=== PATIENT | male | born 1985 | race Caucasian/White ===

== ENCOUNTER → 2019-03-15 10:06 | Outpatient (CLI) | payer OTHER, MEDICAID, SELFPAY ==
[2019-03-15 11:03] LABS: Hematocrit 44.7 % (41-53); Hemoglobin 15.6 g/dL (13.5-17.5); Mean Corpuscular HGB Conc 34.9 % (30-36); Mean Corpuscular Hemoglobin 28.9 PG (26-34); Mean Corpuscular Volume 82.9 fL (80-100); Platelet Count 249 X10^3/uL (150-400); Red Cell Distribution Width 13.5 % (11.6-14.8); White Blood Cell Count 6.8 X10^3/uL (4.5-11.0)
[2019-03-15 11:49] LABS: Alanine Aminotransferase 37 IU/L (<50); Albumin 4.6 g/dL (3.5-5.0); Albumin Globulin Ratio 1.5 (1.0-2.8); Alkaline Phosphatase 80 U/L (38-126); Aspartate Aminotransferase 29 IU/L (17-59); Bilirubin Total 0.6 mg/dL (0.2-1.3); Blood Urea Nitrogen 14 mg/dL (9-20); Calcium 9.6 mg/dL (8.4-10.2); Carbon Dioxide 29 mmol/L (22-32); Chloride 102 mmol/L (98-107); Cholesterol 266 mg/dL (140-199); Estimated Glomerular Filt Rate > 60.0 mL/min (>60); Globulin 3.1 g/dL (1.7-4.1); Glucose 98 mg/dL (70-100); HDL Cholesterol 40 mg/dL (40-60); HEMOLYSIS < 15 (0-50); LDL Cholesterol Calculated 153 mg/dL (<100); Potassium 4.5 mmol/L (3.4-5.1); Sodium 138 mmol/L (137-145); Total Protein 7.7 g/dL (6.3-8.2); Triglycerides 366 mg/dL (35-150)
[2019-03-15 12:20] LABS: TSH w/ Reflex to FT4 1.37 uIU/mL (0.47-4.68)
[2019-03-15 13:00] LABS: Urine Chlamydia NOT DETECTED; Urine N gonorrhoeae NOT DETECTED
[2019-03-17 18:18] LABS: RPR Screen Nonreactive (Nonreactive)
== END ==
PROVIDERS: PCP Nurse Practitioner Family; Visit Provider Nurse Practitioner Family
DX: Z00.00 Encounter for general adult medical examination without abnormal findings (principal); Z13.6 Encounter for screening for cardiovascular disorders; N48.9 Disorder of penis, unspecified; R00.2 Palpitations
CPT/HCPCS: 36415; 80053; 80061; 84443; 85027; 86592; 87491; 87591; 87661

== ENCOUNTER 2019-03-29 00:05 | Emergency (ER) | payer OTHER, MEDICAID, SELFPAY ==
[2019-03-29 00:05] VITALS: BP 157/86; PULSE 71; RESP 18; TEMP 36.7; O2SAT 98; BMI 31.8
--- NOTE | 2019-03-29 00:42 | ED.DENTAL ---
HPI - Dental/Oral General Chief complaint: Dental/Oral Stated complaint: top left tooth pain Time Seen by Provider: 03/29/19 00:28 Source: patient Mode of arrival: Ambulatory Limitations: no limitations History of Present Illness HPI Narrative: 33-year-old male here for evaluation of left upper tooth/jaw pain. Patient states that it started over the past couple days. He states he has known poor dentition and does understand he needs to see a dentist but has not done it. Has had issues like this in the past. Did not see a dentist after them. No fevers. No problems swallowing. Has tried aspirin for his symptoms prior to arrival Related Data Home Medications Medication Instructions Recorded Confirmed ibuprofen 200 mg tablet 400 mg PO Q4-6H PRN tab 03/01/19 03/01/19 Previous Rx's Medication Instructions Recorded penicillin V potassium 500 mg PO QID 7 Days #28 tab 03/29/19 Allergies Allergy/AdvReac Type Severity Reaction Status Date / Time No Known Drug Allergies Allergy Unverified 03/01/19 11:07 Review of Systems Constitutional Constitutional: Denies fever(s) ENT Comments: Left-sided ear pain, dental pain, left upper jaw pain Cardiovascular Cardiovascular: Denies chest pain and Denies dyspnea Respiratory Respiratory: Denies dyspnea Integumentary/Breasts Skin/Breast: Denies rash Hematologic/Lymphatic Hematologic/Lymphatic: Denies easy bleeding and Denies easy bruising Allergic/Immunologic Allergic/Immunologic: Denies urticaria Patient History Medical History ADHD (Chronic) BMI 32.0-32.9,adult (Acute) Chicken pox (Resolved) History of methamphetamine use (Acute 2016) Palpitations (Acute 09/2018) Penis disorder (Acute 2017) Family History (Updated 03/06/19 @ 20:46 by Mariana Pat) Brother Autism Social History Smoking Status: Former smoker Tobacco: How many years used: 16 Smokeless tobacco user: chewing tobacco (Quit 02/26/19) second hand exposure: No alcohol intake: never substance use type: does not use Smoking Status: Former smoker alcohol intake frequency: 0-2 drinks per day Substance Use Type: does not use Exam Initial Vital Signs Initial Vital Signs: Vital Signs Temperature 98.1 F 03/29/19 00:05 Pulse Rate 71 03/29/19 00:05 Respiratory Rate 18 03/29/19 00:05 Blood Pressure 157/86 H 03/29/19 00:05 Pulse Oximetry 98 03/29/19 00:05 Const General: cooperative, comfortable and well developed Orientation: alert and awake HENMT Head: normal to inspection and normocephalic Ears: TM's normal bilaterally Nose: external nose normal Mouth: moist mucous membranes Teeth and gingiva: caries and poor dentition Throat: posterior oropharynx normal Neck Lymphatic: No lymphadenopathy Resp Effort & Inspection: normal respiratory effort Skin Lesions: no lesions Rashes: no rashes Neuro General: alert and awake Cognition: normal cognition Speech: speech normal Extrem General: normal to inspection and capillary refill normal Course Orders Ordered: Discontinued Medications Penicillin V Potassium (Veetids) 500 mg PO NOW ONE Stop: 03/29/19 00:43 Last Admin: 03/29/19 00:51 Dose: 500 mg Documented by: LAVON Vital Signs Vital signs: Vital Signs - 8 hr 03/29/19 00:05 Temperature 98.1 F Pulse Rate 71 Respiratory Rate 18 Blood Pressure 157/86 H Pulse Oximetry 98 MDM - Dental/Oral MDM Narrative Medical decision making narrative: Patient with poor dentition. Has multiple caries and missing teeth in his mouth. There is no defined abscess that can be drained here in the emergency department however given his symptoms this would be a concern. Will start the patient on antibiotics. He was given the 1st dose here prior to discharge. Was sent home with a prescription for remainder. He was informed that he needed to contact a dentist for a follow-up. We did discuss the use of Tylenol and/or ibuprofen for any discomfort. Patient expressed understanding and agreement with plan. Discharge Plan Departure Patient Disposition: Home Clinical Impression: Toothache Discharge Date/Time: 03/29/19 00:53 Instructions: DI for Dental Pain Activity Restrictions/Additional Instructions: I recommend that you start taking an anti-inflammatory such as Motrin/ibuprofen or Naprosyn. Also take the antibiotic as directed. I do highly recommend that you may contact with a dentist to follow up with your dental issues. Return to the emergency department for any new or worsening symptoms Prescriptions: New penicillin V potassium 500 mg tablet 500 mg PO QID 7 Days Qty: 28 RF: 0 No Action ibuprofen 200 mg tablet 400 mg PO Q4-6H PRNRF: 0 Referrals: Daxa Dietz ARNP [Primary Care Provider] -
[2019-03-29] MEDS: PENICILLIN VK 250 MG TABLET 500 MG PO (00:51)
== END 2019-03-29 00:53 | disposition home or self-care (01) ==
PROVIDERS: Emergency Provider Emergency Medicine; PCP Nurse Practitioner Family
DX: K08.89 Other specified disorders of teeth and supporting structures (principal)
CPT/HCPCS: 99281; 99283